=== PATIENT | female | born 1970 | race Caucasian/White ===

== ENCOUNTER → 2023-12-11 17:32 | Outpatient (REF) | payer BC, SELFPAY | LOC: HWWDC 17:32 | PROVIDERS: ATTENDING PHYSICIAN Nurse Practitioner Family | DX: Z12.31 Encounter for screening mammogram for malignant neoplasm of breast (principal) | CPT/HCPCS: 77063; 77067 ==

== ENCOUNTER 2024-11-22 21:45 | Emergency (ER) | payer BC, SELFPAY ==
[2024-11-22 22:00] VITALS: BP 105/75
[2024-11-22 22:24] LABS: % Basophils 0.6 % (0-2); % Eosinophils 4.2 % (0-6); % Immature Granulocytes 0.2 % (0-0.5); % Lymphocytes 28.5 % (20.5-51.1); % Neutrophils 60.5 % (42.2-75.2); Absolute Basophils 0.1 10^3/uL (0-0.2); Absolute Eosinophils 0.4 10^3/uL (0-0.7); Absolute Lymphocytes 2.8 10^3/uL (1.2-3.4); Absolute Monocytes 0.6 10^3/uL (0.1-0.6); Absolute Neutrophils 5.8 10^3/uL (1.4-6.5); Hematocrit 33.6 % (37.0-47.0); Hemoglobin 11.1 g/dL (12.0-16.0); Mean Corpuscular Hgb 29.4 pg (27.0-31.0); Mean Corpuscular Volume 89.1 fL (81.0-99.0); Mean Platelet Volume 9.1 fL (7.4-10.4); Nucleated Red Blood Cells % 0 %; Platelet Count 468 10^3/uL (130-400); Red Blood Cell Count 3.77 10^6/uL (4.20-5.40); Red Cell Dist. Width 13.4 % (11.5-14.5); White Blood Cell Count 9.7 10^3/uL (4.8-10.8)
[2024-11-22 22:25] LABS: Urine Albumin 1+ (Neg - Trace); Urine Bilirubin Negative (Negative); Urine Character Clear (Clear); Urine Color Yellow; Urine Glucose Negative (Negative); Urine Ketone Negative (Negative); Urine Leukocyte Negative (Negative); Urine Nitrite Negative (Negative); Urine Occult Blood 1+ (Negative); Urine Urobilinogen Negative (Neg - 1+)
[2024-11-22 22:31] LABS: Urine Bacteria Few (Negative); Urine Red Blood Cell 0-2 /HPF (0-2); Urine Squamous Cell >30 /LPF (Few); Urine White Cell 0-2 /HPF (0-5)
[2024-11-22 22:37] LABS: COVID-19 Antigen Negative (Negative)
[2024-11-22 22:41] LABS: HCG, Serum Qualitative Screen Negative
[2024-11-22 22:45] LABS: ALT (SGPT) 16 U/L (0-35); AST (SGOT) 17 U/L (14-36); Albumin 4.1 g/dl (3.5-5.0); Alkaline Phosphatase 56 U/L (38-126); Blood Urea Nitrogen 11 mg/dl (7-17); Calcium 10.1 mg/dl (8.4-10.2); Carbon Dioxide 25 mmol/L (22-30); Chloride 104 mmol/L (98-107); Glucose 106 mg/dl (70-99); Lipase 193 U/L (23-300); Potassium 4.1 mmol/L (3.5-5.1); Sodium 136 mmol/L (135-145); Total Bilirubin 1.1 mg/dl (0.2-1.3); Total Protein 7.2 g/dl (6.3-8.2); eGFR > 60.00
[2024-11-22 23:05] VITALS: BP 106/70
[2024-11-23] VITALS: BP 117/80
[2024-11-23] MEDS: BENADRYL 25 MG IV (00:29)
[2024-11-23] MEDS: COMPAZINE 10 MG IV (00:30)
[2024-11-23] MEDS: NSS 1000 IV (00:30)
[2024-11-23 00:31] VITALS: BMI 24.3
--- NOTE | 2024-11-23 01:49 | ED.GENMED ---
History of Present Illness
General
Chief Complaint: Abdominal Pain
Source: patient and spouse
Time Seen by Provider: 11/22/24 23:02
History of Present Illness
History of Present Illness:
This is a 54-year-old female who presents with a headache that began about 2 days ago. The patient admits that she has been dealing with epigastric pain, nausea, vomiting diarrhea since Sunday. About 10 days ago she was in [facility]. The
patient states she went to urgent care and was put on Prozac and actually feels much better from that perspective but that it sort of persist. Patient denies fever or neck pain. No vomiting. She does have a history of migraines. She states that
headache has persisted so she decided hydration. No rash. Spouse states that she was not seemingly improving at home headache was gradual. No injury.
Past History
Past History
ED Past Medical History: GERD
ED Past Surgical History: Cholecystectomy
Social History
Tobacco: Non-smoker
Alcohol: Occasional
Drug: None
Personal:
Living: with family
Employment: Employed
Phy Exam
Physical Exam
Physical Exam:
CONSTITUTIONAL Patient alert and oriented to person, place and time. Well-appearing. Vital signs reviewed.
HEAD atraumatic, normocephalic.
EYES eyelids normal to inspection, Extraocular muscles intact, Conjunctiva normal, Sclera normal.
NECK normal range of motion, Trachea midline, no jugular venous distention. No meningismus
RESPIRATORY CHEST No respiratory distress noted, Chest expansion equal
ABDOMEN abdomen nontender, Bowel sounds normal. No distention.
BACK normal inspection, no obvious deformities
UPPER EXTREMITY range of motion normal, Motor strength normal, no cyanosis, no edema.
LOWER EXTREMITY range of motion normal, Motor strength normal, no cyanosis, no edema.
NEURO Speech normal, No focal motor deficits, Lettsworth coma scale 15, Memory normal, Cranial Nerves intact to screening exam. No pronator drift
SKIN skin warm, dry, and normal in color.
Course
Orders/Labs/Results
Orders:
Orders
11/22/24 22:13
Add On- LAB Urgent
Tests Added?: HCG
11/22/24 22:15
COVID-19 Antigen Urgent
Source: Nasal Swab
Complete Blood Count/With Diff Urgent
Comprehensive Metabolic Panel Urgent
HCG, Serum Qualitative Screen Urgent
Comment: ADD ON
Lipase Urgent
Urinalysis Reflex To Culture Urgent
Date Specimen was Collected: 11/22/24
Time Specimen was Collected: 22:07
Urine Microscopic Reflex Cult Urgent
Influenza A+B Rapid Molecular Urgent
AMIE Source: Nasal Swab
Specimen Description:
Date Specimen was Collected: 11/22/24
Time Specimen was Collected: 22:07
11/23/24 00:11
0.9% Sodium Chloride 1000 ml [Nss] 1,000 ml IV BOLUS
Diphenhydramine [Benadryl] 25 mg IV NOW STA
Prochlorperazine [Compazine] 10 mg IV NOW STA
Abnormal Lab Results
11/22/24
22:15
RBC 3.77 L 10^6/uL
(4.20-5.40)
Hgb 11.1 L g/dL
(12.0-16.0)
Hct 33.6 L %
(37.0-47.0)
Plt Count 468 H 10^3/uL
(130-400)
Glucose 106 H mg/dl
(70-99)
Ur Occult Blood Reflex 1+ A
(Negative)
Urine Bacteria (Reflex) Few A
(Negative)
Urine Albumin (Reflex) 1+ A
(Neg - Trace)
11/22/24 22:15
11/22/24 22:15
Vital Signs
Initial and Last Documented VS:
Initial Vital Signs
Temp Pulse Resp BP Pulse Ox
98.2 F 80 20 105/75 100
11/22/24 22:00 11/22/24 22:00 11/22/24 22:00 11/22/24 22:00 11/22/24 22:00
Last Documented Vital Signs
Temp Pulse Resp BP Pulse Ox
98.2 F 85 18 117/80 100
11/22/24 22:00 11/22/24 23:05 11/22/24 23:05 11/23/24 00:00 11/23/24 00:30
MDM/Problems Addressed
MDM/Problems Addressed:
Headache, gastritis
*Pulse Oximetry
Patient hypoxic: no
*Security Professional Interpretation
Rate: normal
Interpretation: normal
Rhythm: sinus
*Critical Care Note
Total Time (30-74mins, 75-104mins- exclusive of procedures): Not Applicable
Data Reviewed
Source: patient and spouse
Further Testing Considered But Not Given:
Consider CT but headache is gradual and no clinical concern for subarachnoid hemorrhage
Patient Management
Escalation/DeEscalation of care consider admission/obs:
On reassessment patient feels much better symptoms have resolved. She is ambulatory to the bathroom with a normal gait. Neurologic assessment is normal. No meningismus. No rash. Okay for outpatient med
ED Attending Note
-
Portions of this chart may have been created with voice recognition software.� Occasional wrong word or��sound alike� substitutions may have occurred due to the inherent limitations of voice recognition software.
Discharge Plan
Departure
Patient Disposition: Home (Routine Discharge)
Date of Disposition: 11/23/24
Time of Disposition: 01:51
Patient with high blood pressure during this ER visit?: No
Discharge Problem:
Headache
Instructions: Headaches in adults
Prescriptions:
No Action
No Current Medications
0
Referrals:
Randy Caruso DO [Family Provider] -
Activity Restrictions/Additional Instructions:
Please continue to maintain proper hydration and drink plenty of fluids. Return immediately for rash, neck pain, worsening headache, weakness of any kind or any other concerns. Please see your doctor in the next 1 week for follow-up and
reevaluation.
Interventions
Interventions:
*Risk Screen - Suicide Last Done: 11/22/24 22:00
*General Assessment Last Done: 11/22/24 22:00
*Neglect/Abuse Screening Last Done: 11/22/24 22:00
*ED- Fall Risk Assessment Last Done: 11/22/24 22:00
*ED COVID-19 Vaccine History Last Done: 11/22/24 22:00
BN-Fbakoq-Ipjnbmgjdv Assessment Last Done: 11/22/24 23:13
Discharge Date and Time
Print Language: [place]
[2024-11-23 01:53] VITALS: BP 112/78
== END 2024-11-23 02:03 | disposition home or self-care (01) ==
LOC: EMR 21:45
PROVIDERS: Emergency Medicine; EMERGENCY PHYSICIAN Emergency Medicine; FAMILY PHYSICIAN Family Medicine
DX: R51.9 Headache, unspecified (principal); R10.9 Unspecified abdominal pain
CPT/HCPCS: 99283; 96374; 96375; 96361; 80053; 81003; 81015; 83690; 84703; 85025; 87502; 87811

== ENCOUNTER → 2025-04-21 14:57 | Outpatient (REF) | payer BC, SELFPAY | LOC: WDC 14:57 | PROVIDERS: ATTENDING PHYSICIAN Student in an Organized Health Care Education/Training Program; FAMILY PHYSICIAN Advanced Practice Midwife | DX: Z12.31 Encounter for screening mammogram for malignant neoplasm of breast (principal) | CPT/HCPCS: 76830; 77063; 77067 ==

== ENCOUNTER → 2025-05-18 09:52 | Outpatient (REF) | payer BC, SELFPAY | LOC: RAD 09:52 | PROVIDERS: ATTENDING PHYSICIAN Family Medicine | DX: R10.2 Pelvic and perineal pain (principal) | CPT/HCPCS: 74018 ==

== ENCOUNTER → 2025-05-25 16:35 | Outpatient (REF) | payer BC, SELFPAY | LOC: RAD 16:35 | PROVIDERS: ATTENDING PHYSICIAN Family Medicine | DX: R10.2 Pelvic and perineal pain (principal) | CPT/HCPCS: 74177; Q9967 ==

== ENCOUNTER 2025-07-03 19:34 | Emergency (ER) | payer BC, SELFPAY ==
[2025-07-03 19:35] VITALS: BMI 24.6
[2025-07-03 19:37] VITALS: BP 124/101
[2025-07-03 19:43] VITALS: BP 124/101
--- NOTE | 2025-07-03 22:14 | ED.GENMED ---
History of Present Illness
<Shayla Pereira MD, Resident - Last Filed: 07/04/25 14:58>
General
Chief Complaint: Fall
Source: patient
Time Seen by Provider: 07/03/25 21:25
History of Present Illness
History of Present Illness:
55-year-old female presents for a fall complaining of bilateral wrist pain. Today while she was carrying pizza out to the street, she tripped and fell over an uneven edge of pavement. She fell about right landing on her to hands. Her chin hit the
pizza boxes and chest hit the floor. She endorses loss of consciousness for few seconds. She woke up feeling nauseous and had extreme pain in bilateral wrists. She also endorses right knee pain. She denies any dizziness, blurry vision, vomiting,
numbness, tingling, loss of bowel or bladder function. She denies pain anywhere else.
Past History
<Shayla Pereira MD, Resident - Last Filed: 07/04/25 14:58>
Past History
ED Past Medical History: GERD
ED Past Surgical History: Cholecystectomy and Other (Breast reduction )
Social History
Tobacco: Non-smoker
Alcohol: Occasional
Drug: None
Personal:
Living: with family
Employment: Employed
Family History
Family History: Other
Review of Systems
<Shayla Pereira MD, Resident - Last Filed: 07/04/25 14:58>
Review of Systems
Allergies reviewed?: Yes
Constitutional: Reports no symptoms
EENT: Reports no symptoms
Respiratory: Reports no symptoms
Cardiac: Reports no symptoms
ABD/GI: Reports no symptoms
: Reports no symptoms
Musculoskeletal: Reports other (Bilateral wrist pain, right knee pain. )
Neurological: Reports no symptoms
Endocrine: Reports no symptoms
Hematologic/Lymphatic: Reports no symptoms
Psychiatric: Reports no symptoms
Phy Exam
<Shayla Pereira MD, Resident - Last Filed: 07/04/25 14:58>
Physical Exam
Physical Exam:
General: In pain but nontoxic
Head: Nontraumatic
Eyes: PERRLA
Neck: No cervical midline tenderness
ENT: No paul signs, no raccoon eyes, no hemotympanum, no fluid in the nose
Cardiac: Regular S1-S2, no murmurs
Pulmonary: Clear breath sounds bilaterally
Abdomen: Soft, nontender, nondistended, normal bowel sounds in all 4 quadrants
Extremities: Left wrist significant swelling and slight ecchymosis along the thenar eminence, significant pain even with light touch. No tenderness with palpation at distal ulna or radius. No tenderness along left elbow. Right wrist significant
swelling and ecchymosis along thenar eminence. Ecchymosis also noted along distal ulna. Tenderness with palpation of distal radius. No tenderness along right distal radius. Knee tenderness with point tenderness to right patella and just superior to
it. Small abrasion just superior to the patella noted.
Neurological: CN II-XII intact, 5/5 strength bilateral upper and lower extremities, sensation intact.
Psych: Mood stable
Scores
<Shayla Pereira MD, Resident - Last Filed: 07/04/25 14:58>
PECARN >2 YEARS
GCS <15: No
Signs basilar skull fracture: No
LOC: Yes
Patient vomiting: No
Severe headache: No
Severe mechanism: No
If any criteria positive, consider head CT: Yes
<Demarcus Rolon, DO - Last Filed: 07/04/25 00:16>
PECARN >2 YEARS
If any criteria positive, consider head CT: Yes
Course
<Shayla Pereira MD, Resident - Last Filed: 07/04/25 14:58>
Orders/Labs/Results
Orders:
Orders
07/03/25 19:48
CR Wrist - Left Min 3 Views Urgent
Comment:
Reason For Exam: fall, bilateral wrist pain
Wrist, Right 3 Views [CR Wrist - Right Min 3 Views] Urgent
Comment:
Reason For Exam: fall, bilateral wrist pain
07/03/25 19:49
Knee, Right 4 or More Views [CR Knee- Right 4 Or More View*] Urgent
Comment:
Reason For Exam: fall, right knee pain
07/03/25 22:25
CT Head W/o Iv Contrast Urgent
Comment:
Reason For Exam: fall, LOC
07/03/25 23:02
Oxycodone/Acetaminophen [Percocet 5/325] 1 tablet PO NOW STA
07/03/25 23:03
Ibuprofen [Motrin] 600 mg PO NOW STA
CR Chest - 2 Views Urgent
Comment:
Reason For Exam: trauma
07/03/25 23:46
Splints/Slings/Crut- Treatment ONCE
Vital Signs
Initial and Last Documented VS:
Initial Vital Signs
Temp Pulse Resp BP Pulse Ox
98.2 F 88 24 124/101 97
07/03/25 19:37 07/03/25 19:37 07/03/25 19:37 07/03/25 19:37 07/03/25 19:37
Last Documented Vital Signs
Temp Pulse Resp BP Pulse Ox
98.6 F 80 15 122/54 99
07/03/25 19:43 07/03/25 22:52 07/03/25 22:52 07/03/25 22:52 07/03/25 22:52
<Demarcus Rolon, DO - Last Filed: 07/04/25 00:16>
Orders/Labs/Results
Orders:
Orders
07/03/25 19:48
CR Wrist - Left Min 3 Views Urgent
Comment:
Reason For Exam: fall, bilateral wrist pain
Wrist, Right 3 Views [CR Wrist - Right Min 3 Views] Urgent
Comment:
Reason For Exam: fall, bilateral wrist pain
07/03/25 19:49
Knee, Right 4 or More Views [CR Knee- Right 4 Or More View*] Urgent
Comment:
Reason For Exam: fall, right knee pain
07/03/25 22:25
CT Head W/o Iv Contrast Urgent
Comment:
Reason For Exam: fall, LOC
07/03/25 23:02
Oxycodone/Acetaminophen [Percocet 5/325] 1 tablet PO NOW STA
07/03/25 23:03
Ibuprofen [Motrin] 600 mg PO NOW STA
CR Chest - 2 Views Urgent
Comment:
Reason For Exam: trauma
07/03/25 23:46
Splints/Slings/Crut- Treatment ONCE
Vital Signs
Initial and Last Documented VS:
Initial Vital Signs
Temp Pulse Resp BP Pulse Ox
98.2 F 88 24 124/101 97
07/03/25 19:37 07/03/25 19:37 07/03/25 19:37 07/03/25 19:37 07/03/25 19:37
Last Documented Vital Signs
Temp Pulse Resp BP Pulse Ox
98.6 F 80 15 122/54 99
07/03/25 19:43 07/03/25 22:52 07/03/25 22:52 07/03/25 22:52 07/03/25 22:52
<Shayla Pereira MD, Resident - Last Filed: 07/04/25 14:58>
MDM/Problems Addressed
Differential Diagnosis Includes:
scaphoid fracture, dislocation, concussion, intracranial hemorrhage, sprain, rib fracture,
MDM/Problems Addressed:
Non-con head CT due to loss of consciousness however denies any headache, cervical neck pain, neurological exam. Bilateral wrist x-ray and right knee x-ray to evaluate for any fracture, dislocation. Head CT unremarkable. Chest-x-ray no fractures.
Scaphoid fracture still possible. Given imaging all reassuring, okay to discharge with thumb splints, pain medications and instructions to follow up with orthopedics for further evaluation of the wrists.
<Shayla Pereira MD, Resident - Last Filed: 07/04/25 14:58>
*Pulse Oximetry
SaO2: 100
Oxygen Mode of Delivery: Room air
Patient hypoxic: no
*Critical Care Note
Total Time (30-74mins, 75-104mins- exclusive of procedures): Not Applicable
ED Attending Note
<Shayla Pereira MD, Resident - Last Filed: 07/04/25 14:58>
-
Portions of this chart may have been created with voice recognition software.� Occasional wrong word or��sound alike� substitutions may have occurred due to the inherent limitations of voice recognition software.
<Demarcus Rolon, DO - Last Filed: 07/04/25 00:16>
ED Attending Note
Patient seen and examined by attending physician: Yes
I performed a history and physical exam of patient and discussed management with resident, I reviewed resident's note and agree with documented findings and plan of care.: Yes
ED Attending Note:
Seen with resident examined independently tripped and fall bilateral wrist pain hit her chest or get knocked out of her, here she looks well she does have small abrasion on the volar surface of her left wrist with some pain at the anatomic snuffbox,
plan will be x-rays bilaterally of her wrist which are negative, thumb spica, chest x-ray no obvious pneumo or rib fracture
Discharge Plan
Departure
Patient Disposition: Home (Routine Discharge)
Date of Disposition: 07/04/25
Time of Disposition: 00:15
Patient with high blood pressure during this ER visit?: No
Condition: Good
Discharge Problem:
strain
Instructions: Head Injury in Adults (DC), Contusion
Prescriptions:
New
ibuprofen 600 mg tablet
600 mg PO Q6H PRN (Reason: Pain) Qty: 20 0RF
oxycodone-acetaminophen [Percocet] 5-325 mg tablet
1 tab PO Q6HPRN PRN (Reason: pain) Qty: 10 0RF
Referrals:
Donavon Hurtado MD [Active, Orthopedics] - Next open appointment
Alpesh Umanzor DO [Family Provider, Family Practice]
Activity Restrictions/Additional Instructions:
Please take ibuprofen 600mg every 6 hours as needed for pain. Please follow up with orthopedics for further evaluation of your thumbs.
Interventions
Interventions:
*Risk Screen - Suicide Last Done: 07/03/25 19:43
*General Assessment Last Done: 07/03/25 19:43
*Neglect/Abuse Screening Last Done: 07/03/25 19:43
*ED- Fall Risk Assessment Last Done: 07/04/25 00:35
*ED COVID-19 Vaccine History Last Done: 07/04/25 00:35
*ED Influenza Vaccine History Last Done: 07/04/25 00:35
*Nursing Disposition Last Done: 07/04/25 00:35
ED-Musculoskeletal Assessment Last Done: 07/03/25 22:53
ED- Neurological Assessment Last Done: 07/03/25 22:53
ED-Skin Assessment Last Done: 07/03/25 22:53
Discharge Date and Time
Discharge Date/Time: 07/04/25 00:38
Print Language: SWEDISH
[2025-07-03 22:52] VITALS: BP 122/54
[2025-07-03] MEDS: PERCOCET 5/325 1 TABLET PO (23:20)
[2025-07-03] MEDS: MOTRIN 600 MG PO (23:20)
== END 2025-07-04 00:38 | disposition home or self-care (01) ==
LOC: EMR 19:34
PROVIDERS: EMERGENCY PHYSICIAN Emergency Medicine; FAMILY PHYSICIAN Family Medicine
DX: M25.531 Pain in right wrist (principal); M25.532 Pain in left wrist; W01.0XXA Fall on same level from slipping, tripping and stumbling without subsequent striking against object, initial encounter; K21.9 Gastro-esophageal reflux disease without esophagitis; Z90.49 Acquired absence of other specified parts of digestive tract
CPT/HCPCS: 99284; 70450; 71046; 73110; 73564

== ENCOUNTER → 2025-07-14 19:01 | Outpatient (REF) | payer BC, SELFPAY | LOC: PAVMRI 19:01 | PROVIDERS: ATTENDING PHYSICIAN Orthopaedic Surgery Orthopaedic Trauma; FAMILY PHYSICIAN Family Medicine | DX: S62.001A Unspecified fracture of navicular [scaphoid] bone of right wrist, initial encounter for closed fracture (principal); S62.185A Nondisplaced fracture of trapezoid [smaller multangular], left wrist, initial encounter for closed fracture | CPT/HCPCS: 73221 ==

== ENCOUNTER 2025-08-20 06:34 | Outpatient (RCR) | payer BC, SELFPAY | END 2025-08-20 23:59 | disposition home or self-care (01) | LOC: ROT 06:34 | PROVIDERS: ATTENDING PHYSICIAN Orthopaedic Surgery Orthopaedic Trauma; FAMILY PHYSICIAN Family Medicine | DX: M79.642 Pain in left hand (principal); M79.641 Pain in right hand; Z73.6 Limitation of activities due to disability; W19.XXXD Unspecified fall, subsequent encounter | CPT/HCPCS: 97018; 97166; 97535 ==